=== PATIENT | female | born 1960 | race Hispanic/Latino ===

== ENCOUNTER 2018-01-23 14:44 | Emergency (ER) | payer OTHER, BC ==
[~2018-01-23] VITALS: Ht 144.8 cm; Wt 61.7 kg
[~2018-01-23 14:44] MED LIST: HYDROCODON-ACE1 EA10 PO; LEVOTHYROXINE50 MCG PO; NAPROXEN500 MG PO; NORCO 5-325 TA1 EACH PO; ZOFRAN ODT4 MG PO
[2018-01-23] MEDS ORDERED: VITAMIN D1000 UNI1 PO (15:43)
[2018-01-23] MEDS ORDERED: ACETAMINOPHEN325 M1 PO (17:26)
[2018-01-23] MEDS ORDERED: NAPROSYN500 MG PO (17:26)
== END 2018-01-23 17:38 | disposition home or self-care (01) ==
LOC: ED 14:44
DX: S16.1XXA Strain of muscle, fascia and tendon at neck level, initial encounter (principal); E03.9 Hypothyroidism, unspecified; Z79.899 Other long term (current) drug therapy; V49.60XA Unspecified car occupant injured in collision with unspecified motor vehicles in traffic accident, initial encounter
CPT/HCPCS: 72040; 99283

== ENCOUNTER 2020-07-17 07:40 | Day surgery (SDC) | payer BC ==
[~2020-07-17] VITALS: Ht 144.8 cm; Wt 64.1 kg
[~2020-07-17 07:40] MED LIST changes: +ACETAMINOPHEN325 M1 PO; +NAPROSYN500 MG PO; +VITAMIN D1000 UNI1 PO
--- NOTE | 2020-07-17 09:52 | NUR ---
07/17/20 0952 Sheets,Zee 0924 PT ARRIVED TO PACU AND WAKES TO TACTILE STIMULI. VSS. RESP RATE DECREASED AND RN ENCOURAGES DEEP BREATHING. PT REORIENTED TO PACU AND EASIYL FALLS BACK TO SLEEP. ON 2L VIA NC. 0949 PT WAKES TO VERBAL STIMULI AND IS REORIENTED TO PACU. PT DENIES NAUSEA AND PAIN. PT ENCOURAGED TO PASS GAS.
--- NOTE | 2020-07-17 10:27 | OR ---
[facility] [address], [place] [address] Signed DATE OF OPERATION: 07/17/2020 SURGEON: Esther Montaño MD PREOPERATIVE DIAGNOSIS: Screening. POSTOPERATIVE DIAGNOSIS: Minimal internal hemorrhoids. PROCEDURE: Colonoscopy biopsy. ESTIMATED BLOOD LOSS: None. INDICATIONS: Jaden is a 60-year-old female, asked to see me for her initial screening colonoscopy. She has no lower GI complaints. There is no family history of colon cancer or polyps. In the office, I gave her a pamphlet on colonoscopy and we looked at that together along with the risks including, but not limited to gas bloating, crampy abdominal pain, bleeding, perforation requiring surgery, and missed diagnosis. We also discussed the need for IV conscious sedation, she had expressed understanding and wished to proceed. DESCRIPTION OF PROCEDURE: Jaden was taken into our endoscopy suite and placed in the left lateral decubitus position. She was given 4 mg of Versed and 125 mcg of fentanyl to cover the case. A digital rectal exam was performed and this was unremarkable. The adult colonoscope was introduced and advanced under direct visualization of the camera without difficulty. She did require some mild abdominal compression. Her prep was quite excellent. We could easily see the appendiceal orifice and ileocecal valve. She has some prominence to that ileocecal valve and/or small lipoma there. We had taken pictures for photodocumentation. The rest of the colon and rectum were unremarkable. Upon retroflexion of scope, she has small internal hemorrhoid columns. After this, the gas was suctioned out and the colonoscope removed. Jaden tolerated the procedure quite well. RECOMMENDATIONS: Jaden can return in 10 years for repeat screening colonoscopy. Electronically Signed By: ESTHER MONTAÑO MD 07/17/20 1027 PATIENT NAME: JADEN MURPHY OPERATIVE REPORT DATE OF : 64 REPORT #: [id number] PHYSICIAN: ESTHER MONTAÑO MD PCP: ASHLEY CHEUNG MD REPORT IS CONFIDENTIAL AND NOT TO BE RELEASED WITHOUT AUTHORIZATION [address] [address] Signed MD RICHARD Alatorre/MARK /[id number] cc: RACHANA Lai MD Bryony Jo McCollaugh, DO Copies: ESTHER MONTAÑO MD, BRYONY JO DO ~ Electronically Signed By: ESTHER MONTAÑO MD 07/17/20 1027 PATIENT NAME: JADEN MURPHY OPERATIVE REPORT DATE OF : 64 REPORT #: [id number] PHYSICIAN: ESTHER MONTAÑO MD PCP: ASHLEY CHEUNG MD REPORT IS CONFIDENTIAL AND NOT TO BE RELEASED WITHOUT AUTHORIZATION
== END 2020-07-17 10:36 | disposition home or self-care (01) ==
LOC: DS 07:40 → OPS 07:40 → DS 09:00 → OPS 10:36
PROVIDERS: ATTEND Colon & Rectal Surgery
PROC: 0DJD8ZZ Inspection of Lower Intestinal Tract, Via Natural or Artificial Opening Endoscopic (ICD-10-PCS; principal; 2020-07-17 09:00)
DX: Z12.11 Encounter for screening for malignant neoplasm of colon (principal); D17.5 Benign lipomatous neoplasm of intra-abdominal organs; K64.8 Other hemorrhoids; K21.9 Gastro-esophageal reflux disease without esophagitis; E03.9 Hypothyroidism, unspecified; Z79.890 Hormone replacement therapy; Z79.899 Other long term (current) drug therapy
CPT/HCPCS: 99153; G0500; J2250; J3010; J7121